=== PATIENT | male | born 1970 | race American Indian/Alaskan Native ===

== ENCOUNTER 2020-08-24 16:08 | Emergency (ER) | payer BC ==
[2020-08-24] MEDS ORDERED: MORPHINE 4 MG/1 ML INJ IV ONE (16:32)
--- NOTE | 2020-08-24 16:38 | Event Note ---
ED Screening Note Date of service: 08/24/20 Time: 16:37 ED Screening Note: 49-year-old -Russian male presents to the emergency room for excruciating right lower abdominal pain and right testicular pain with swelling that started 2 or 3 days ago and has progressively gotten worse. Patient states he has vomited twice one time during my triage interview. Patient states that the pain is over 10 out of 10. States is never been in the ER. Try taking ibuprofen earlier. No past medical history takes no medications on a daily basis has no known drug allergies. No Covid contacts vaccinated for COVID-19. This initial assessment/diagnostic orders/clinical plan/treatment(s) is/are subj ect to change based on patients health status, clinical progression and re- assessment by fellow clinical providers in the ED. Further treatment and workup at subsequent clinical providers discretion. Patient/guardian urged not to elope from the ED as their condition may be serious if not clinically assessed and managed. Initial orders include:
[2020-08-24] MEDS ORDERED: SODIUM CHLORIDE 0.9% 1000 ML 1,000 ML IV ONE ×2 (17:00→20:52)
[2020-08-24] MEDS ORDERED: ONDANSETRON 4 MG/2 ML INJ IV ONE (17:00)
[2020-08-24] MEDS ORDERED: HYDROmorphone 2 MG/1 ML INJ IV ONE (17:14)
[2020-08-24] MEDS ORDERED: HYDROmorphone 1 MG/1 ML INJ IV ONE ×3 (17:15→22:31)
--- NOTE | 2020-08-24 17:20 | Emergency Department Report ---
ED Abdominal Pain HPI - General Chief Complaint: Abdominal Pain Stated Complaint: ABD PAIN Time Seen by Provider: 08/24/20 16:38 Source: patient Mode of arrival: Ambulatory Limitations: No Limitations - History of Present Illness Initial Comments: Patient is 49 years old male with no significant past medical history. Patient presented to the ER complaining of right lower quadrant pain and right scrotal swelling. Patient stated that symptoms started 1 week ago with a small swelling in his scrotum on the right side and he took ibuprofen and his pain went away. Patient stated that for the last 2 to 3 days he became more swollen and his pain now is 10 out of 10. Patient also stated that he started having nausea and vomiting. Patient denied any injury or trauma. Patient also denied any fever or chills. MD Complaint: abdominal pain -: days(s) Location: RLQ Migration to: other (Right scrotum) Severity scale (0 -10): 9 Consistency: constant Associated Symptoms: nausea, vomiting - Related Data Allergies Allergy/AdvReac Type Severity Reaction Status Date / Time No Known Allergies Allergy Unverified 08/24/20 16:30 ED Review of Systems ROS: Stated complaint: ABD PAIN Other details as noted in HPI Comment: All other systems reviewed and negative Constitutional: denies: chills, fever Respiratory: denies: cough, shortness of breath, SOB with exertion, SOB at rest Cardiovascular: denies: chest pain, palpitations Gastrointestinal: abdominal pain, nausea, vomiting. denies: diarrhea Genitourinary: other (Scrotal swelling). denies: testicular pain Musculoskeletal: back pain Neurological: denies: headache, weakness, numbness, paresthesias, confusion ED Past Medical Hx - Past Medical History Previous Medical History?: No - Surgical History Past Surgical History?: No ED Physical Exam - General Limitations: No Limitations General appearance: alert, in distress - Head Head exam: Present: atraumatic, normocephalic, normal inspection - Eye Eye exam: Present: normal appearance, PERRL - ENT ENT exam: Present: normal exam, normal orophraynx, mucous membranes moist - Neck Neck exam: Present: normal inspection, full ROM. Absent: tenderness, meningismus - Respiratory Respiratory exam: Present: normal lung sounds bilaterally - Cardiovascular Cardiovascular Exam: Present: regular rate, normal rhythm, normal heart sounds - GI/Abdominal GI/Abdominal exam: Present: soft, normal bowel sounds. Absent: distended, tenderness, guarding, rebound, rigid, mass, bruit, pulsatile mass, hernia - exam: Present: testicular tenderness, scrotal swelling External exam: Present: swelling. Absent: erythema - Extremities Exam Extremities exam: Present: normal inspection, full ROM, normal capillary refill. Absent: tenderness - Back Exam Back exam: Present: normal inspection, full ROM. Absent: CVA tenderness (R), CVA tenderness (L) - Neurological Exam Neurological exam: Present: alert, oriented X3, CN II-XII intact - Psychiatric Psychiatric exam: Present: normal mood - Skin Skin exam: Present: warm, intact, normal color ED Medical Decision Making - Lab Data Result diagrams: 08/24/20 17:29 08/24/20 17:29 - Radiology Data Radiology results: report reviewed - Medical Decision Making Patient is 49 years old male with no significant past medical history. Patient presented to the ER complaining of right lower quadrant pain and right scrotal swelling. Patient stated that symptoms started 1 week ago with a small swelling in his scrotum on the right side and he took ibuprofen and his pain went away. Patient stated that for the last 2 to 3 days he became more swollen and his pain now is 10 out of 10. Patient also stated that he started having nausea and vomiting. Patient denied any injury or trauma. Patient also denied any fever or chills. Physical exam showed significant right scrotal swelling with tenderness. Testicular ultrasound showed evidence of epididymoorchitis. Labs reviewed and show elevated white blood cells of 16,000. Patient received Rocephin [address] abdomen and pelvis with IV contrast is unremarkable except for groundglass appearance of right lower lobe however patient denying any cough, congestion or fever or shortness of breath or chest pain. Patient received multiple doses of pain medication and stated that he is feeling better. Patient given prescription for ciprofloxacin, and after seen and tramadol and advised to follow-up with his primary doctor in the next 2 to 3 days and to return to the ER if he develop any new symptoms. Critical care attestation.: If time is entered above; I have spent that time in minutes in the direct care of this critically ill patient, excluding procedure time. ED Disposition Clinical Impression: Acute abdominal pain, Acute epididymo-orchitis Disposition: TO HOME OR SELFCARE Is pt being admited?: No Condition: Stable Instructions: Epididymitis (ED), Epididymitis, Orchitis Referrals: [facility] [Other] - 3-5 Days Forms: STI Treatment and Prevention, Work/School Release Form(ED)
--- NOTE | 2020-08-24 17:54 | Ultrasound Report ---
ULTRASOUND SCROTUM INDICATION / CLINICAL INFORMATION: Right testicular pain and swelling. COMPARISON: None available. FINDINGS -- RIGHT TESTIS: Size = 4.4 x 3.2 x 3.2 cm. - Appearance: Slight heterogeneity with mildly increased vascularity when compared to the left. - Cyst or Mass: None. - Color Doppler Flow: No significant abnormality. EPIDIDYMIS: Mildly enlarged appearance with considerably increased vascularity. HYDROCELE: Small VARICOCELE: None demonstrated. FINDINGS -- LEFT TESTIS: Size = 3.1 x 2.4 x 3.3 cm. - Appearance: No significant abnormality. - Cyst or Mass: None. - Color Doppler Flow: No significant abnormality. EPIDIDYMIS: No significant abnormality. HYDROCELE: None. VARICOCELE: None demonstrated. ADDITIONAL FINDINGS: None. IMPRESSION: 1. Findings suggestive of right-sided epididymitis. Mild right testicular heterogeneity and increased vascularity suggests mild concomitant orchitis. Signer Name: Herbert Phelps MD Signed: 08/24/2020 5:49 PM Workstation Name: [id number]
[2020-08-24] MEDS ORDERED: cefTRIAXone/NS 1 GM/50 ML 1 GM/50 ML BAG IV ONE (18:09)
[2020-08-24 18:13] LABS: Basophils # (Auto) 0.1 K/mm3 (0.0-0.1); Basophils % (Auto) 0.6 % (0.0-1.8); Hematocrit 43.4 % (35.5-45.6); Hemoglobin 14.3 gm/dl (11.8-15.2); Lymphocytes # (Auto) 0.6 K/mm3 (1.2-5.4); Lymphocytes % (Auto) 3.6 % (13.4-35.0); Mean Corpuscular HGB Conc 33 % (32-34); Mean Corpuscular Volume 94 fl (84-94); Monocytes # (Auto) 1.8 K/mm3 (0.0-0.8); Monocytes % (Auto) 10.8 % (0.0-7.3); Platelet Count 214 K/mm3 (140-440); Red Blood Count 4.63 M/mm3 (3.65-5.03); Red Cell Distribution Width 13.3 % (13.2-15.2)
[2020-08-24 18:37] LABS: Alanine Aminotransferase 24 units/L (7-56); Albumin 4.1 g/dL (3.9-5); BUN/Creatinine Ratio 15; Blood Urea Nitrogen 12 mg/dL (9-20); Calcium 8.8 mg/dL (8.4-10.2); Hemolysis Index 14
[2020-08-24 18:41] LABS: Bilirubin,Direct < 0.2 mg/dL (0-0.2)
[2020-08-24] MEDS ORDERED: fentaNYL 250 MCG/5 ML INJ IV ONE (19:17)
--- NOTE | 2020-08-24 19:38 | Cat Scan Report ---
CT ABDOMEN AND PELVIS WITH CONTRAST HISTORY: Abdominal pain COMPARISON: None TECHNIQUE: Routine abdominal and pelvic CT exam performed following intravenous contrast administrat ion.. All CT scans at this location are performed using CT dose reduction for ALARA by means of autom ated exposure control. FINDINGS: CT ABDOMEN: Lung Bases: There are patchy groundglass opacities in the visualized right middle lobe. Liver: No significant abnormality. Biliary: No significant abnormality. Spleen: No significant abnormality. Unenlarged. Pancreas: No significant abnormality. Adrenals: No significant abnormality. Kidneys: No significant abnormality. Lymphatics: No lymphadenopathy. Vasculature: No significant abnormality. Bowel/Peritoneum: No significant abnormality. No free air. No free fluid. Normal appendix. CT PELVIC: : No significant abnormality. Lymphatics: No lymphadenopathy. Osseous Structures: No aggressive appearing osseous lesions. Additional Findings: None IMPRESSION: 1. Patchy groundglass opacities in the visualized right middle lobe concerning for pneumonia. 2. No acute findings in the abdomen or pelvis. Signer Name: Bobby Hernandez MD Signed: 08/24/2020 7:34 PM Workstation Name: [id number]
[2020-08-24] MEDS ORDERED: KETOROLAC 30 MG/1 ML INJ IV ONE (19:40)
[2020-08-24] MEDS ORDERED: fentaNYL 100 MCG/2 ML INJ IV ONE (20:00)
[2020-08-24 20:14] LABS: Bacteria,Urine 1+ /HPF (Negative); Bilirubin,Urine NEG (Negative); Blood,Urine SM (Negative); Color,Urine Yellow (Yellow); Mucus,Urine FEW /HPF; Protein,Urine <15 mg/dL mg/dL (Negative); Urobilinogen,Urine < 2.0 mg/dL (<2.0)
[2020-08-24] MEDS ORDERED: ACETAMINOPHEN 500 MG TAB PO ONE (20:34)
[2020-08-25 00:47] VITALS: BP 128/91
== END 2020-08-25 00:10 | disposition home or self-care (01) ==
LOC: ED 16:08
DX: N45.3 Epididymo-orchitis (principal); R10.31 Right lower quadrant pain
CPT/HCPCS: 36415; 74177; 80048; 80076; 81001; 85025; 87086; 93976; 96361; 96365; 96375; 96376; 99284; J0696; J1170; J1885; J2270; J2405; J3010; J7030; Q9967; 93975